=== PATIENT | female | born 1985 | race Caucasian/White ===

== ENCOUNTER 2018-12-02 01:01 | Emergency (ER) | payer SELFPAY ==
[2018-12-02 01:06] VITALS: BP 144/76
== END 2018-12-02 12:00 | disposition home or self-care (01) ==
LOC: ED 01:01
DX: T78.40XA Allergy, unspecified, initial encounter (principal); X58.XXXA Exposure to other specified factors, initial encounter; Z53.21 Procedure and treatment not carried out due to patient leaving prior to being seen by health care provider